=== PATIENT | female | born 1990 | race Caucasian/White ===

== ENCOUNTER 2017-08-04 22:08 | Emergency (ER) | payer OTHER ==
[~2017-08-04] VITALS: Ht 160 cm; Wt 65.8 kg
[~2017-08-04 22:08] MED LIST: KETO10TA2 PO
== END 2017-08-04 22:59 | disposition home or self-care (01) ==
LOC: ER 22:08
DX: R06.02 Shortness of breath (principal); F06.4 Anxiety disorder due to known physiological condition

== ENCOUNTER 2019-01-25 12:37 | Emergency (ER) | payer OTHER ==
[~2019-01-25] VITALS: Ht 160 cm; Wt 61.2 kg
== END 2019-01-25 16:46 ==
LOC: ER 12:37
DX: J06.9 Acute upper respiratory infection, unspecified (principal)

== ENCOUNTER 2019-07-01 21:59 | Emergency (ER) | payer OTHER ==
[~2019-07-01] VITALS: Ht 160 cm; Wt 63.5 kg
== END 2019-07-02 02:10 | disposition home or self-care (01) ==
LOC: ER 21:59
DX: M94.0 Chondrocostal junction syndrome [Tietze] (principal); R06.02 Shortness of breath

== ENCOUNTER 2020-06-16 22:29 | Emergency (ER) | payer OTHER ==
[~2020-06-16] VITALS: Ht 160 cm; Wt 65.8 kg
[2020-06-17] MEDS ORDERED: KETO10TA2 PO (02:35)
== END 2020-06-17 02:55 | disposition home or self-care (01) ==
LOC: ER 22:29
DX: N83.292 Other ovarian cyst, left side (principal); N83.291 Other ovarian cyst, right side; N93.8 Other specified abnormal uterine and vaginal bleeding

== ENCOUNTER 2021-07-29 18:10 | Emergency (ER) | payer OTHER ==
[~2021-07-29] VITALS: Ht 160 cm; Wt 63.5 kg
== END 2021-07-29 20:01 | disposition home or self-care (01) ==
LOC: ER 18:10
DX: R10.11 Right upper quadrant pain (principal)

== ENCOUNTER 2021-09-26 09:25 | Outpatient (CLI) | payer OTHER ==
[2021-09-27] MEDS ORDERED: WIXELA 100-501 EACH IH (11:02)
[2021-09-27] MEDS ORDERED: BENZONATATE200 M1 PO (15:51)
[2021-09-27] MEDS ORDERED: MUCINEX1200 MG PO (15:51)
== END 2021-09-26 09:38 | disposition home or self-care (01) ==
LOC: SONOGRAMA 09:25
PROVIDERS: ATTEND Obstetrics & Gynecology
DX: N63.22 Unspecified lump in the left breast, upper inner quadrant (principal)

== ENCOUNTER 2021-09-27 10:49 | Emergency (ER) | payer OTHER ==
[~2021-09-27] VITALS: Ht 160 cm; Wt 68.0 kg
[2021-09-27] MEDS ORDERED: WIXELA 100-501 EACH IH (11:02)
[2021-09-27] MEDS ORDERED: BENZONATATE200 M1 PO (15:51)
[2021-09-27] MEDS ORDERED: MUCINEX1200 MG PO (15:51)
== END 2021-09-27 16:10 | disposition home or self-care (01) ==
LOC: ER 10:49
DX: R05.9 Cough, unspecified (principal); R09.81 Nasal congestion; B34.9 Viral infection, unspecified; Z20.822 Contact with and (suspected) exposure to COVID-19

== ENCOUNTER 2022-06-25 19:06 | Emergency (ER) | payer OTHER ==
[~2022-06-25] VITALS: Ht 160 cm; Wt 67.6 kg
[~2022-06-25 19:06] MED LIST changes: +BENZONATATE200 M1 PO; +MUCINEX1200 MG PO; +WIXELA 100-501 EACH IH
== END 2022-06-25 22:14 | disposition home or self-care (01) ==
LOC: ER 19:06
DX: J45.901 Unspecified asthma with (acute) exacerbation (principal); R53.81 Other malaise; R05.9 Cough, unspecified; Z20.822 Contact with and (suspected) exposure to COVID-19

== ENCOUNTER 2023-02-13 23:56 | Emergency (ER) | payer OTHER ==
[~2023-02-13] VITALS: Ht 160 cm; Wt 63.5 kg
== END 2023-02-14 | disposition left against medical advice (07) ==
LOC: ER 23:57
DX: Z53.21 Procedure and treatment not carried out due to patient leaving prior to being seen by health care provider (principal)

== ENCOUNTER → 2024-10-16 | Emergency (ER) | payer OTHER ==
[~2024-10-16] VITALS: Ht 160 cm; Wt 63.5 kg
[~2024-10-16] MED LIST changes: +METHYLPREDNISOLONE SOD SUCC 125 MG VIAL IV ONE; +METHYLPREDNISOLONE SOD SUCC 125 MG VIAL ONE; +WIXELA 250-501 EACH
== END | disposition home or self-care (01) ==
LOC: ER 19:44
DX: L50.9 Urticaria, unspecified (principal)

== ENCOUNTER 2024-11-18 13:54 | Emergency (ER) | payer OTHER ==
[~2024-11-18] VITALS: Ht 160 cm; Wt 63.5 kg
[~2024-11-18 13:54] MED LIST changes: -METHYLPREDNISOLONE SOD SUCC 125 MG VIAL IV ONE; -METHYLPREDNISOLONE SOD SUCC 125 MG VIAL ONE
[2024-11-18] MEDS ORDERED: DEXAMETHASONE SODIUM PHOSPHATE 4 MG/ML VIAL IM ONE (16:00)
[2024-11-18] MEDS ORDERED: ACETAMINOPHEN 325 MG TABLET PO ONE (16:15)
[2024-11-18] MEDS ORDERED: ACETAMINOPHEN 500 MG GEL..CAP PO ONE ×2 (16:17→17:01)
[2024-11-18] MEDS ORDERED: DEXAMETHASONE SODIUM PHOSPHATE 4 MG/ML VIAL ONE (16:17)
[2024-11-18] MEDS ORDERED: NAPROXEN500 MG PO (18:16)
== END 2024-11-18 19:22 | disposition home or self-care (01) ==
LOC: ER 13:54
DX: M25.461 Effusion, right knee (principal)